=== PATIENT | male | born 1975 | race Caucasian/White ===

== ENCOUNTER 2019-12-13 10:31 | Emergency (ER) | payer MEDICAID ==
[~2019-12-13] VITALS: Ht 193 cm; Wt 145.2 kg
[~2019-12-13 10:31] MED LIST: KEFLEX500 MG PO; MECLIZINE HCL25 M1 PO; NOHOMEMEDICATIONS
[2019-12-13 11:48] VITALS: BP 115/75
== END 2019-12-13 11:45 | disposition home or self-care (01) ==
LOC: M.ERS 10:31
DX: B34.9 Viral infection, unspecified (principal); Z20.828 Contact with and (suspected) exposure to other viral communicable diseases; J45.909 Unspecified asthma, uncomplicated; F17.210 Nicotine dependence, cigarettes, uncomplicated; Z88.0 Allergy status to penicillin

== ENCOUNTER 2020-01-23 15:20 | Emergency (ER) | payer MEDICAID ==
[~2020-01-23] VITALS: Ht 195.6 cm; Wt 158.8 kg
[2020-01-23] MEDS ORDERED: VRAYLAR3 MG PO (15:34)
[2020-01-23] MEDS ORDERED: NORCO 5-325 TA1 EAC2 PO (16:39)
[2020-01-23 16:48] VITALS: BP 140/87
== END 2020-01-23 16:50 | disposition home or self-care (01) ==
LOC: M.ERS 15:20
DX: M25.562 Pain in left knee (principal); J45.909 Unspecified asthma, uncomplicated; Z79.899 Other long term (current) drug therapy; Z88.0 Allergy status to penicillin

== ENCOUNTER 2020-08-01 15:28 | Emergency (ER) | payer MEDICAID ==
[~2020-08-01] VITALS: Ht 190.5 cm; Wt 167.8 kg
[~2020-08-01 15:28] MED LIST changes: +NORCO 5-325 TA1 EAC2 PO; +VRAYLAR3 MG PO
[2020-08-01] MEDS ORDERED: ALDACTONE100 MG PO (15:48)
[2020-08-01] MEDS ORDERED: PROGESTERONE200 MG PO (15:49)
[2020-08-01] MEDS ORDERED: TRIAMCINOLONE A15 G1 TOP (16:51)
[2020-08-01] MEDS ORDERED: HYDROXYZINE HCL25 M2 PO (16:51)
[2020-08-01] MEDS ORDERED: BACTRIM DS TAB1 EACH PO (16:51)
[2020-08-01 17:02] VITALS: BP 169/75
== END 2020-08-01 17:02 | disposition home or self-care (01) ==
LOC: M.ERS 15:28
DX: L29.9 Pruritus, unspecified (principal); L98.8 Other specified disorders of the skin and subcutaneous tissue; J45.909 Unspecified asthma, uncomplicated; Z88.0 Allergy status to penicillin